=== PATIENT | male | born 1975 | race Caucasian/White ===

== ENCOUNTER 2016-11-18 21:59 | Emergency (ER) | payer OTHER ==
[2016-11-18 22:12] VITALS: BP 131/111; PULSE 90; RESP 16; TEMP 97.7; O2SAT 96
--- NOTE | 2016-11-18 22:17 | EDPHY ---
H & P Stated Complaint: Oil dobbins to L lower arm HPI/ROS: HPI CHIEF COMPLAINT: Burn to left arm at work HISTORY OF PRESENT ILLNESS: This patient very pleasant 41-year-old male, presents emergency room after she sustained a grease burn on the dorsum of the left arm. Patient was cooking at work went empty the WOK and grease splashed out of the walker onto his left arm. Upon arrival here to the emergency room he is declining any pain medicine. He has a 3% dorsum left arm burn. This is 2nd degree partial thickness. Patient does tell me his tetanus shot is up-to- date. Past Medical History: Chronic cervical spine pain and low back pain. Past Surgical History: Cervical fusion, lumbar fusion Social History: Denies daily use of drugs alcohol tobacco products Family History: noncontributory ROS REVIEW OF SYSTEMS: A comprehensive 10 point review of systems is otherwise negative aside from elements mentioned in the history of present illness. Exam Constitutional triage nursing summary reviewed, vital signs reviewed, awake/ alert. Eyes normal conjunctivae and sclera, EOMI, PERRLA. HENT normal inspection, atraumatic, moist mucus membranes, no epistaxis, neck supple/ no meningismus, no raccoon eyes. Respiratory clear to auscultation bilaterally, normal breath sounds, no respiratory distress, no wheezing. Cardiovascular rate normal, regular rhythm, no murmur, no edema, distal pulses normal. Gastrointestinal soft, non-tender, no rebound, no guarding, normal bowel sounds, no distension, no pulsatile mass. Genitourinary no CVA tenderness. Musculoskeletal no midline vertebral tenderness, full range of motion, no calf swelling, no tenderness of extremities, no meningismus, good pulses, neurovascularly intact. Skin left arm: Dorsum of the left arm there is 3% total body surface area burn, second-degree there is blisters present. It is not circumferential. There is no third-degree evidence. pink, warm, & dry, no rash, skin atraumatic. Neurologic awake, alert and oriented x 3, AAOx3, moves all 4 extremities equally, motor intact, sensory intact, CN II-XII intact, normal cerebellar, normal vision, normal speech. Psychiatric normal mood/affect. Heme/Lymph/Immune no lymphadenopathy. Differential Diagnosis: Includes but is not limited to in a particular order 2nd degree burn to left arm dorsal aspect, wound care, acute pain control for burn wound. Medical Decision Making: Patient here in emergency room does not want any pain medicine for his burn, he would like a dressing placed in would like to be discharged. His tetanus shot is up-to-date. We will dress his 3% left arm, 2nd degree. Patient understands he needs to follow up with [facility] he will be referred to them. He understands if he has any significant pain drainage fever redness or concerns of infection of his burn he needs return to the emergency room. He Understands he should follow up with [facility]. 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 - Social History Smoking Status: Never smoked Constitutional: Initial Vital Signs Temperature (C) 36.5 C 11/18/16 22:08 Heart Rate 90 11/18/16 22:08 Respiratory Rate 16 11/18/16 22:08 Blood Pressure 131/111 H 11/18/16 22:08 O2 Sat (%) 96 11/18/16 22:08 O2 Delivery Mode Room Air Allergies/Adverse Reactions: No Known Allergies Allergy (Verified 11/18/16 22:12) Home Medications: Medication Instructions Recorded Robaxin-750 11/18/16 Valium 11/18/16 Zolpidem Tartrate 11/18/16 morphINE 11/18/16 Departure - Departure Disposition: Home, Routine, Self-Care Clinical Impression: Burn of arm, left, second degree Condition: Good Instructions: Acute Wounds (ED), Second Degree Burn (ED) Additional Instructions: 1. Please keep your wound clean, protected and dry. 2. Return to the emergency room if you have any worsening symptoms questions or concerns or questions about your room. 3. You can follow up with Plastic Surgery or [facility]. Please call this number to schedule an appointment [phone] at [facility] for follow up. You may also follow up with Plastic Surgery, This referral has been given to you. Referrals: Amor Rivas MD [Medical Doctor] - As per Instructions
== END 2016-11-18 22:40 | disposition home or self-care (01) ==
DX: T22.232A Burn of second degree of left upper arm, initial encounter (principal); T31.0 Burns involving less than 10% of body surface; X10.2XXA Contact with fats and cooking oils, initial encounter; Y92.89 Other specified places as the place of occurrence of the external cause; Y99.0 Civilian activity done for income or pay; Y93.G3 Activity, cooking and baking